=== PATIENT | female | born 1970 | race Caucasian/White ===

== ENCOUNTER 2017-06-18 16:54 | Emergency (ER) | payer SELFPAY ==
[~2017-06-18] VITALS: Ht 167.6 cm; Wt 67.0 kg
[2017-06-18 16:58] VITALS: BP 126/77; PULSE 83; RESP 16; TEMP 97.9; O2SAT 97
[2017-06-18] MEDS ORDERED: NORC5TAB PO (17:19)
--- NOTE | 2017-06-18 17:20 | PD ---
HPI . Knee injury Chief Complaint: Injury Time Seen by Provider: 17:13 Travel History International Travel<30 days: No Contact w/Intl Traveler<30days: No Traveled to known affect area: No History of Present Illness HPI This patient presents status post a right knee injury. The injury occurred just prior to arrival. She states that she slipped on a tile floor and her knee was twisted. She is complaining with pain mainly to the lateral aspect of the knee. She is unable to bear weight on the knee secondary to pain. She rates her pain as 14/10. This patient suffered her initial knee injury many years ago while ice-skating. She states that she had a femur fracture and subsequently had ORIF of her fractures. She did well for a few years. However, she has had a couple of relatively insignificant episodes of trauma but with significant injury to her knee. She has had 2 more surgeries since her original ORIF. She states that her right knee normally has the same appearance as her left knee., She does not have chronic swelling of the right knee. PFSH Past Medical History Asthma: Yes Anxiety: Yes Diminished Hearing: No Endocrine: No GERD: Yes Glaucoma: No Genitourinary: No Hepatitis: No Hiatal Hernia: No Hypertension: Yes Immune Disorder: No Musculoskeletal: No Neurologic: No Respiratory: No Thyroid Disease: No Ulcer: Yes Tetanus Vaccination: < 5 Years Influenza Vaccination: Yes ?: Not LMP: FREDERIC : 3 Para: 5 Miscarriage: 2 Tubal Ligation: Yes Past Surgical History Abdominal Surgery: No Cardiac Surgery: No Ear Surgery: No Endocrine Surgery: No Eye Surgery: No Genitourinary Surgery: No Gynecologic Surgery: Yes (TUBAL LIGATION 1995, ABLATION) Hysterectomy: Yes (PARTIAL) Neurologic Surgery: No Oral Surgery: No Pacemaker: No Thoracic Surgery: No Other Surgery: Yes Social History Alcohol Use: Yes (wine, weekends) Tobacco Use: No Substance Use: No Allergies-Medications (Allergen,Severity, Reaction): Coded Allergies: morphine (Unverified Adverse Reaction, Severe, Nausea/Vomiting, 06/18/17) Reported Meds & Prescriptions Reported Meds & Active Scripts Active [place] (Hydrocodone-Acetaminophen) 5 Mg-325 Mg Tab 1 Tab PO Q4H PRN Review of Systems Except as stated in HPI: all other systems reviewed are Neg Musculoskeletal: Positive: Arthralgias, Limited ROM Physical Exam Narrative GENERAL: Awake and alert and in no acute distress. SKIN: Warm and dry. Intact. HEAD: Normocephalic/atraumatic. EYES: Pupils are equal. Extraocular movements are intact. NECK: Normal range of motion. CARDIOVASCULAR: Regular rate and rhythm. RESPIRATORY: Nonlabored respirations. MUSCULOSKELETAL: Right knee is visibly swollen compared to the left knee. There is an effusion. She has diminished range of motion. The entire knee is tender. NEUROLOGICAL: Nonfocal. PSYCHIATRIC: Appropriate mood and affect. Data Data Last Documented VS Vital Signs Date Time Temp Pulse Resp B/P (MAP) Pulse Ox O2 Delivery O2 Flow Rate FiO2 06/18/17 17:03 Room Air 06/18/17 16:58 97.9 83 16 126/77 (93) 97 Orders Orders Knee, Complete (4vws) (06/18/17 17:07) [facility] Medical Decision Making Medical Screen Exam Complete: Yes Emergency Medical Condition: Yes Differential Diagnosis Differential diagnosis of extremity trauma includes but is not limited to fracture, sprain or strain, dislocation, contusion Narrative Course Patient presents complaining with a right knee injury. She has had several previous surgeries on her right knee all stemming from an injury which occurred many years ago when she was ice skating. X-ray of the knee is pending. X-ray>>Vertical fracture medial patella The patient was placed in a long-leg knee immobilizer and crutches. She will be referred to orthopedics. Diagnosis Primary Impression: Internal derangement of right knee Additional Impression: Right patella fracture Qualified Codes: S82.024A - Nondisplaced longitudinal fracture of right patella, initial encounter for closed fracture Referrals: Eulalio Gordon Jr., MD Patient Instructions: General Instructions, RICE Therapy (ED) Med/Other Pt SpecificInfo: Prescription(s) given Scripts Hydrocodone-Acetaminophen ([place]) 5 Mg-325 Mg Tab 1 TAB PO Q4H Y for PAIN, #12 TAB 0 Refills Prov: Lorie Olivier MD 06/18/17 Disposition: 01 DISCHARGE HOME Condition: Stable Lorie Olivier MD Jun 18, 2017 17:20
--- NOTE | 2017-06-18 17:43 | RADRPT ---
EXAM DATE/TIME: 06/18/2017 17:30 [facility] COMPARISON: No previous studies available for comparison. INDICATIONS : Right lateral knee pain after slipping and twisting knee on tile floor. MEDICAL HISTORY : None. SURGICAL HISTORY : Right knee surgery. ENCOUNTER: Initial ACUITY: 1 day PAIN SCORE: 10/10 LOCATION: Right knee. FINDINGS: Patella fracture medial corner. Anatomic alignment. Trace joint effusion. CONCLUSION: Vertical fracture medial patella Dennis Miller MD FACR on June 18, 2017 at 17:39 Board Certified Radiologist. This report was verified electronically.
== END 2017-06-18 18:04 | disposition home or self-care (01) ==
LOC: PHEFT 16:54
DX: S82.024A Nondisplaced longitudinal fracture of right patella, initial encounter for closed fracture (principal); W01.0XXA Fall on same level from slipping, tripping and stumbling without subsequent striking against object, initial encounter; I10 Essential (primary) hypertension; J45.909 Unspecified asthma, uncomplicated; F41.9 Anxiety disorder, unspecified; K21.9 Gastro-esophageal reflux disease without esophagitis
CPT/HCPCS: 73564; 99283; E0113